=== PATIENT | female | born 1960 | race African-American/Black ===

== ENCOUNTER 2021-07-03 14:16 | Inpatient (IN) | payer OTHER, SELFPAY ==
[2021-07-03] VITALS (12 sets, daily range): BP systolic 91–145; BP diastolic 55–120; PULSE 89–111; RESP 22–35; TEMP 36.6–37.1; O2SAT 97–100; BMI 37.8; BMI 37.9
--- NOTE | ~2021-07-03 | XR_ITS ---
XR chest 1V portable 07/03/2021 15:26 Indication: Dyspnea, shortness of breath. Covid positive. Procedure: AP portable chest Comparison: No prior studies for comparison. Findings: Extensive bilateral airspace disease. Cardiomegaly. No significant effusion or pneumothorax . There are postsurgical changes in the right axilla and upper thorax. Impression: 1: Diffuse bilateral airspace disease which may represent pneumonia,, edema or ARDS. Reviewed, dictated and finalized at location A. HARGE SPECIALIST Impression: 1: Diffuse bilateral airspace disease which may represent pneumonia,, edema or ARDS.
--- NOTE | ~2021-07-03 | CT_ITS ---
EXAMINATION: CTA chest DATE: 07/03/2021 16:03 PARTICLEBOARD FACTORY WORKER INDICATION: Shortness of breath, hypoxia. Covid. TECHNIQUE: Computed tomographic angiography (CTA) of the chest was performed with 100 mL Omnipaque-35 0 intravenous contrast. The dose-length product was 928.91 mGy-cm. Maximum intensity projection 3D-re constructions of the aorta and other arteries were constructed by the technologist on a separate work station. Automated exposure control and iterative reconstruction technique were employed. COMPARISON: Chest dated 07/03/2021. FINDINGS: There is atherosclerosis of the aorta and coronary arteries. Left ventricular hypertrophy. Mild cardiomegaly. No significant pleural or pericardial effusion. Small hiatal hernia. Status post c holecystectomy. No thoracic lymphadenopathy. Extensive patchy bilateral airspace disease, compatible with pneumonia. No endobronchial lesions. There is dependent atelectasis. No evidence for pulmonary embolism. Mild thoracic spondylosis. Mild levocurvature of the thoracic spi ne. No evidence for aortic aneurysm or dissection. IMPRESSION: 1. Extensive patchy bilateral groundglass opacification in both lungs, compatible with pneumonia. 2: No evidence for pulmonary embolism. Reviewed, dictated and finalized at location A. ICLEBOARD FACTORY WORKER IMPRESSION: 1. Extensive patchy bilateral groundglass opacification in both lungs, compatib le with pneumonia. 2: No evidence for pulmonary embolism.
--- NOTE | 2021-07-03 14:20 | ECG_ITS ---
Measurements Intervals [place] Rate: 85 P: 85 NM: 238 QRS: -30 QRSD: 82 T: 136 QT: 399 QTc: 476 Interpretive Statements SINUS RHYTHM WITH FIRST DEGREE AV BLOCK POOR R WAVE PROGRESSION, ANTERIOR LEADS BORDERLINE ST-T WAVE ABNORMALITY- ANTEROLAT/HIGH LAT LEADS BASELINE ARTIFACT- I, II, AVR, AVL, AVF, V1-V3 ABNORMAL ECG Electronically Signed On 07-03-2021 14:37:09 RESOURCE RECOVERY ENGINEER by Julius Wick D.O.
[2021-07-03] MEDS: ALBUTEROL SULFATE NEB 2.5 MG/0.5 ML INH 5 MG INHALATION (14:46)
[2021-07-03] MEDS: IPRATROPIUM BR 0.02% INH SOLN 0.5 MG/2.5 ML VIAL INHALATION (14:46)
[2021-07-03 14:57] LABS: Basophils Percent Auto 0.2 % (0.2-1.2); Eosinophils Percent Auto 0.2 % (0-4.4); Hematocrit 41.3 % (37.0-47.0); Hemoglobin 13.8 g/dL (12.0-15.0); Immature Granulocyte Absolute 0.04 K/mm3 (0.00-0.031); Immature Granulocyte Percent A 0.9 % (0-0.5); Immature Platelet Fraction Pct 5.2 % (0.9-11.2); Lymphocytes Absolute Auto 2.23 K/mm3 (0.9-3.2); Lymphocytes Percent Auto 50.6 % (18.3-44.2); Mean Corpuscular HGB Conc 33.4 g/dl (32-36); Mean Corpuscular Volume 95.8 fl (80-100); Mean Platelet Volume 10.4 fl (7.4-10.4); Monocytes Absolute Auto 0.5 K/mm3 (0.1-0.6); Monocytes Percent Auto 10.4 % (2.6-8.5); Neutrophils Absolute Auto 1.7 K/mm3 (1.3-6.7); Neutrophils Percent Auto 37.7 % (45.5-73.1); Platelet Count Result 136 k/mm3 (150-375); Red Blood Count 4.31 M/mm3 (4.2-5.4); Red Cell Distribution Width 13.2 % (11.5-14.5); White Blood Count 4.4 K/mm3 (4.5-10.0)
[2021-07-03 15:05] LABS: Alanine Aminotransferase 31 U/L (4-35); Albumin Level 3.5 g/dL (3.5-5.1); Alkaline Phosphatase 218 U/L (38-126); Anion Gap 10 mmol/L (8-16); Aspartate Amino Transferase 78 U/L (14-36); Bilirubin,Total 0.8 mg/dL (0.2-1.3); Blood Urea Nitrogen 29 mg/dL (7-17); Calcium 6.6 mg/dL (8.4-10.2); Carbon Dioxide 25 mmol/L (22-30); Chloride 88 mmol/L (98-107); Estimated Glomerular Filt Rate > 60; Glucose 162 mg/dL (65-110); Potassium 4.3 mmol/L (3.4-5.0); Sodium 123 mmol/L (137-145)
[2021-07-03] MEDS: methylPREDNISolone SOD SUCC 125 MG VIAL IV PUSH (15:05)
[2021-07-03 15:07] LABS: Alveolar/Arterial O2 Gradient 94.1 mmHg; Base Excess ABG -0.9 mEq/l (+/-2.0); Fractional Inspired Oxygen 28 %; HCO3 ABG 22.6 mEq/l (22.0-26.0); Oxygen Saturation ABG 93.6 % (95.0-100.0); Oxyhemoglobin 90.9 % THb (90.0-100.0); PCO2 ABG 34.4 mmHg (35.0-45.0); PO2 FiO2 Ratio Arterial Blood 2.32 %; Total Hemoglobin 14.1 g/dL (12.0-18.0); pH ABG 7.436 (7.350-7.450)
[2021-07-03 15:09] LABS: Device NASAL CANNULA; Modified Allen's Test Pass; Site Drawn RIGHT RADIAL
[2021-07-03 15:14] LABS: NT Pro B Type Natriuretic Pept 2110 pg/mL (5-100)
--- NOTE | 2021-07-03 16:15 | ED.SOB ---
HPI - SOB/Dyspnea General Chief Complaint: Shortness of Breath/Dyspnea <Adarsh Taveras MD - Last Filed: 07/03/21 19:00> Stated Complaint: RESP DISTRESS/COVID + <Adarsh Taveras MD - Last Filed: 07/03/21 19:00> Time Seen by Provider: 07/03/21 14:21 <Adarsh Taveras MD - Last Filed: 07/03/21 19:00> Source: patient <Adarsh Taveras MD - Last Filed: 07/03/21 19:00> History of Present Illness HPI Narrative: Patient referred from the nursing facility for respiratory distress. Patient ports she has felt short of breath for the past couple days and is getting progressively worse. She reports cough and diffuse body aches she denies focal areas of pain such as chest pain and or abdominal pain denies any nausea vomiting or diarrhea. Reports she was diagnosed with Covid approximately 5 days ago at the nursing facility. <Adarsh Taveras MD - Last Filed: 07/03/21 19:00> Related Data Home Medications: Home Medications Medication Instructions Recorded Confirmed acetaminophen-codeine 12.5 ml PO BID 07/03/21 07/03/21 albuterol mcg INHALATION PRN 07/03/21 ascorbic acid (vitamin C) 250 mg PO DAILY 07/03/21 07/03/21 aspirin 81 mg PO DAILY 07/03/21 07/03/21 atorvastatin 40 mg PO DAILY 07/03/21 07/03/21 calcitriol 0.25 mcg PO 3XW 07/03/21 07/03/21 calcium carbonate-vitamin D3 cap PO BID 07/03/21 cephalexin 500 mg PO Q8H 07/03/21 07/03/21 famotidine 20 mg PO BID 07/03/21 07/03/21 ferrous sulfate 325 mg PO BID 07/03/21 07/03/21 gabapentin 300 mg PO TID 07/03/21 07/03/21 insulin glargine [Lantus U-100 SUBCUT 07/03/21 Insulin] insulin lispro 07/03/21 metoprolol tartrate 12.5 07/03/21 midodrine 10 mg PO TID 07/03/21 07/03/21 prednisone 5 mg PO DAILY 07/03/21 07/03/21 tacrolimus 1.5 mg 07/03/21 warfarin 3 mg PO DAILY 07/03/21 07/03/21 <Adarsh Taveras MD - Last Filed: 07/03/21 19:00> Allergies/Adverse Reactions: Allergies Allergy/AdvReac Type Severity Reaction Status Date / Time No Known Allergies Allergy Verified 07/03/21 14:41 <Adarsh Taveras MD - Last Filed: 07/03/21 19:00> Review of Systems Review of Systems: CONSTITUTIONAL: Denies fever, chills, or sweats. EYES: Denies visual changes, redness, or discharge. ENT: Denies rhinorrhea, congestion, sore throat, or otalgia. CARDIOVASCULAR: Denies chest pain, palpitations, or edema. RESPIRATORY: Reports cough and shortness of breath GASTROINTESTINAL: Denies abdominal pain, nausea, vomiting, or diarrhea. GENITOURINARY: Denies dysuria or hematuria. SKIN: Denies rash or itching. MUSCULOSKELETAL: Denies back pain, joint pain, or myalgia. NEUROLOGIC: Denies headache, numbness, dizziness, or weakness. PSYCHIATRIC: Denies anxiety or depression. <Adarsh Taveras MD - Last Filed: 07/03/21 19:00> All systems reviewed & are unremarkable except as noted in HPI and below <Adarsh Taveras MD - Last Filed: 07/03/21 19:00> PMFSH Past Medical History Medical History: Medical History (Updated 07/03/21 @ 18:56 by Adarsh Taveras MD) 2019 novel coronavirus-infected pneumonia (NCIP) <Adarsh Taveras MD - Last Filed: 07/03/21 19:00> Surgical History Surgical History: Surgical History (Updated 07/03/21 @ 18:57 by Adarsh Taveras MD) S/P AKA (above knee amputation) bilateral <Adarsh Taveras MD - Last Filed: 07/03/21 19:00> Social History Social History: Social History (Updated 07/03/21 @ 18:59 by Adarsh Taveras MD) Substance use: never <Adarsh Taveras MD - Last Filed: 07/03/21 19:00> Exam Narrative: GENERAL: Well-appearing, well-nourished, and in no acute distress. HEAD: Normocephalic, atraumatic. EYES: PERRLA and EOMI. ENT: Nares clear, no rhinorrhea or epistaxis. Mucous membranes moist. NECK: Supple. No masses. No JVD CHEST: Diffuse wheezing in all lung [place] HEART: Regular rate and rhythm. No murmur heard. Normal peripheral pulses. ABDOMEN: Multiple surgical scars no focal areas of
--- NOTE | 2021-07-03 16:51 | PC.NURSE ---
upon entry to exam room, patient's WOB increase with deep, more accessory muscle use. MD notified and at bedside. new orders received. pt remains alert and orientated however, appears lethargic and slow to answer questions.
--- NOTE | 2021-07-03 16:52 | PC.NURSE ---
Pt having increased work of breathing and seems more lethargic. Pt still wheezing at this time. MD made aware and at bedside reassessing pt. orders for repeat ABG and hour long breathing treatment.
[2021-07-03 17:03] LABS: Lactic Acid Reflex 3.1 mmol/L (0.7-2.1)
[2021-07-03 17:11] LABS: INR 1.8; Prothrombin Time 20.2 Seconds (11.1-14.7)
[2021-07-03 17:12] LABS: Partial Thromboplastin Time 46.1 SECONDS (22.3-36.8)
[2021-07-03] MEDS: IPRATROPIUM BR 0.02% INH SOLN 0.5 MG/2.5 ML VIAL 1.5 MG INHALATION (17:58)
[2021-07-03] MEDS: ALBUTEROL SULFATE NEB 2.5 MG/0.5 ML INH 15 MG INHALATION (17:58)
[2021-07-03 18:48] LABS: Base Excess ABG -1.8 mEq/l (+/-2.0); HCO3 ABG 22.3 mEq/l (22.0-26.0); PO2 ABG 66.9 mmHg (80.0-100.0)
[2021-07-03 18:49] LABS: Alveolar/Arterial O2 Gradient 90.3 mmHg; Oxygen Content ABG 18.7 %vol (16.0-22.0); Oxygen Saturation ABG 93.6 % (95.0-100.0); Oxyhemoglobin 91.3 % THb (90.0-100.0); Total Hemoglobin 14.6 g/dL (12.0-18.0)
[2021-07-03 18:50] LABS: Device NASAL CANNULA; PO2 FiO2 Ratio Arterial Blood 2.39 %; Site Drawn RIGHT BRACHIAL
[2021-07-03] MEDS: REMDESIVIR 200 MG/NS 250 ML 200 MG/250 ML BAG 250 MG IVPB (18:50)
--- NOTE | 2021-07-03 18:51 | PC.NURSE ---
spoke with Dr Taveras. OK to collect urine when patient can go
--- NOTE | 2021-07-03 19:16 | PC.NURSE ---
[facility] notified by RN that [facility] faxed.
--- NOTE | 2021-07-03 19:40 | PM.IMHP ---
H&P: HPI History of Present Illness Date/Time: 07/03/21 19:40 Chief Complaint: Shortness of breath Narrative: This is a 60-year-old female with past medical history significant for type 2 diabetes mellitus, bilateral above the knee amputations, kidney transplant. Patient resides at a shelter facility staff was concerned for patient's decreased oxygen saturation and a test for COVID came back positive, it was noted that the patient was getting progressively short of breath. Most of the history has been obtained from reviewing medical records as patient is giving much history. [facility] but was brought in today by ambulance. Preliminary workup was significant for CTA was not significant for pulmonary embolism but showed extensive ground-glass opacity, chest x-ray was significant for bilateral airway disease diffuse infiltrates. An ABG showed a pH of 7.4 a pCO2 36 and a PO2 of 66. Decision has been made to admit the patient for further management evaluation and treatment. Review of Systems Review of Systems: ROS unobtainable: Yes unobtainable due to medical condition (Drowsy) and unobtainable due to mental status PMFSH Past Medical History Medical History (Updated 07/03/21 @ 18:56 by Adarsh Taveras MD) 2019 novel coronavirus-infected pneumonia (NCIP) Surgical History Surgical History (Updated 07/04/21 @ 02:33 by Korin Cortez MD) S/P AKA (above knee amputation) bilateral Family History Family History (Updated 07/03/21 @ 23:34 by Chasity Rios RN) Sibling Breast cancer Social History Social History (Updated 07/03/21 @ 18:59 by Adarsh Taveras MD) Alcohol intake: unknown Substance use: unknown Spiritual care concerns: No Meds Home Medications and Allergies Home Medications Medication Instructions Recorded Confirmed Type acetaminophen-codeine 12.5 ml PO Q12H 07/03/21 07/03/21 History albuterol sulfate 2 puff INHALATION Q6H PRN 07/03/21 07/03/21 History ascorbic acid (vitamin C) 250 mg PO DAILY 07/03/21 07/03/21 History aspirin 81 mg PO DAILY 07/03/21 07/03/21 History atorvastatin 40 mg PO DAILY 07/03/21 07/03/21 History calcitriol 0.25 mcg PO 3XW 07/03/21 07/03/21 History calcium carbonate-vitamin D3 1 tablet PO BID 07/03/21 07/03/21 History dextran 70-hypromellose 2 drp EACH EYE BID 07/03/21 07/03/21 History [Artificial Tears (PF)] [id number] A-D-aloe 1 applic TOPICAL TID 07/03/21 07/03/21 History [Zinc Oxide Diaper Cream] ergocalciferol (vitamin D2) 1,250 mcg PO WEEKLY 07/03/21 07/03/21 History [Vitamin D2] famotidine 20 mg PO BID 07/03/21 07/03/21 History ferrous sulfate 325 mg PO BID 07/03/21 07/03/21 History gabapentin 300 mg PO TID 07/03/21 07/03/21 History insulin glargine [Lantus U-100 6 unit SUBCUT HS 07/03/21 07/03/21 History Insulin] insulin lispro See Rx Instructions .ROUTE .COMPLEX 07/03/21 07/03/21 History magnesium oxide 400 mg PO DAILY 07/03/21 07/03/21 History metoprolol tartrate 12.5 mg PO Q12H 07/03/21 07/03/21 History midodrine 10 mg PO TID 07/03/21 07/03/21 History multivitamin [Daily Multivitamin] 1 tablet PO DAILY 07/03/21 07/03/21 History prednisone 5 mg PO DAILY 07/03/21 07/03/21 History tacrolimus 1.5 mg PO Q12H 07/03/21 07/03/21 History warfarin 3 mg PO QPM 07/03/21 07/03/21 History Allergies Allergy/AdvReac Type Severity Reaction Status Date / Time No Known Allergies Allergy Verified 07/03/21 14:41 Vital Signs Vital Signs - 24 hr 07/03/21 14:21 07/03/21 14:28 07/03/21 15:06 Temperature 97.8 F Pulse Rate 94 96 Respiratory Rate 24 H Blood Pressure 145/120 H Pulse Oximetry 98 07/03/21 15:09 07/03/21 16:54 07/03/21 17:53 Temperature Pulse Rate 101 H 94 Respiratory Rate 22 H 30 H Blood Pressure Pulse Oximetry 98 97 07/03/21 18:52 07/03/21 19:23 Temperature Pulse Rate 89 111 H Respiratory Rate 27 H 35 H Blood Pressure 101/79 Pulse Oximetry 100 Exa
[2021-07-03 19:52] LABS: Reflex Lactic Acid Yes or No Add Lactic
[2021-07-03] MEDS: WARFARIN (*PBKC) 3 MG TABLET PO (22:35)
[2021-07-03] MEDS: GABAPENTIN 300 MG CAPSULE PO (22:35)
[2021-07-04] VITALS (11 sets, daily range): BP systolic 100–155; BP diastolic 34–101; PULSE 52–104; RESP 18–31; TEMP 36.3–37.1; O2SAT 91–100
[2021-07-04] MEDS: INSULIN GLARGINE (*BKC) 100 UNITS/ML 6 UNITS SUB-Q (01:15)
[2021-07-04] MEDS: INSULIN ASPART (*BKC) 100 UNITS/ML 10 UNITS SUB-Q (01:15)
[2021-07-04 01:36] LABS: Glucose Point of Care 475 mg/dl (65-105)
[2021-07-04 02:16] LABS: Add Urine Microscopic? YES; Appearance Urine Cloudy (Clear); Bacteria Urine Trace /hpf; Bilirubin Urine Negative (Negative); Blood Urine 2+ (Negative); Color Urine Straw (Yellow); Glucose Urine UA 3+ mg/dL (Negative); Ketones Urine Trace mg/dL (Negative); Leukocyte Esterase Ur 3+ LEU/UL (Negative); Nitrate Urine Negative (Negative); Protein Urine Negative (Negative); Specific Grav Ur 1.008 (1.001-1.035); Urobilinogen Urine Negative mg/dL (<2.0); WBC Clumps Urine Present /HPF; WBC Urine >75 /hpf
--- NOTE | 2021-07-04 02:32 | PC.NURSE ---
Pt refused bipap and farias orders. Respiratory and this RN both stressed how much pt needed the bipap due to her work of breathing. Dr Cortez notified. Dr Cortez came to talk to the pt about importance and told me pt was agreeing to both bipap and farias. When this RN went back into room, pt was unsure of farias but allowed attempt. Unsuccessful at [address] farias[address] Before leaving the room to see if antother RN could try, RN attempted to place bipap on pt. Pt could not tolerate the pressure and refused before RN even was able to fully tighten the mask. Stressed again how important the bipap is in reducing her work of breathing and that with her labored breathing she could wear out and need intubation. Pt became tearful and is requesting transfer to [facility] where her composing machine operator is. Pt wished to talk to her mother. Alerted Dr Cortez to refusal of bipap again and to pt's desire to transfer. NNO at this time. Called pt's mother at 0100 to explain the situation, potential for intubation, and pt's desire to transfer then transferred call to pt's room.
--- NOTE | 2021-07-04 03:11 | PC.NURSE ---
This patient, Terese Salcido, was admitted to [facility]U Room 200-01. Patient/family oriented to hospital policies and general routines including ID bracelet, bed and alarms, visiting hours, pain management, procedures, bathroom and other care routines, personal items, smoking policy, room service/diet, and visiting hours. Patient encouraged to report perceived risks to care and to ask questions if they do not understand what they are told or what they should do.
[2021-07-04 04:52] LABS: INR 1.9; Prothrombin Time 21.6 Seconds (11.1-14.7)
[2021-07-04 05:02] LABS: Alanine Aminotransferase 41 U/L (4-35); Estimated CRCL calculation 57 ml/min; Estimated Glomerular Filt Rate > 60
[2021-07-04] MEDS: INSULIN ASPART (*BKC) 100 UNITS/ML 12 UNITS SUB-Q (05:38)
[2021-07-04 05:42] LABS: Glucose Point of Care 437 mg/dl (65-105)
--- NOTE | 2021-07-04 06:21 | PC.NURSE ---
Asked pt again if I could put bipap mask on. Breathing seems more labored. Pt still refuses.
--- NOTE | 2021-07-04 08:11 | PM.IMPN ---
Subjective Date/time seen: 07/04/21 08:11 Objective Data Vital Signs Vital Signs: Vital Signs - 24 hr 07/03/21 14:21 07/03/21 14:28 07/03/21 15:06 Temperature 97.8 F Pulse Rate 94 96 Respiratory Rate 24 H Blood Pressure 145/120 H Pulse Oximetry 98 07/03/21 15:09 07/03/21 16:54 07/03/21 17:53 Temperature Pulse Rate 101 H 94 Respiratory Rate 22 H 30 H Blood Pressure Pulse Oximetry 98 97 07/03/21 18:52 07/03/21 19:23 07/03/21 19:51 Temperature 97.8 F Pulse Rate 89 111 H 107 H Respiratory Rate 27 H 35 H 24 H Blood Pressure 101/79 117/90 Pulse Oximetry 100 98 07/03/21 20:08 07/03/21 20:54 07/03/21 22:00 Temperature 98.7 F Pulse Rate 103 H 96 93 Respiratory Rate 26 H Blood Pressure 91/55 L Pulse Oximetry 100 97 07/04/21 00:00 07/04/21 02:00 07/04/21 04:00 Temperature 97.9 F 97.7 F Pulse Rate 100 90 86 Respiratory Rate 31 H 27 H Blood Pressure 100/46 L 155/52 H Pulse Oximetry 100 98 07/04/21 06:00 07/04/21 07:54 Temperature 98.8 F Pulse Rate 86 52 L Respiratory Rate 20 Blood Pressure 113/34 L Pulse Oximetry 98 Intake/Output Intake/Output: Intake & Output 07/01/21 07/02/21 07/03/21 07/04/21 23:59 23:59 23:59 23:59 Intake Total 250 3000 Output Total 1100 Balance 250 1900 Meds/Results Medications: Active Medications Generic Name Dose Route Start Last Admin Trade Name Freq PRN Reason Stop Dose Admin Albuterol 2 puff 07/04/21 04:00 Albuterol Sulfate (*Sp) Inhaler INHALATION Q4HRT [facility] Artificial Tears 2 drop 07/04/21 09:00 Artificial Tears Ophth Soln 15 Ml Bottle EACH EYE 08/03/21 08:59 BID [facility] Calcium Carbonate 500 mg 07/04/21 09:00 Calcium/Vitamin D 500 Mg Tablet PO 08/03/21 08:59 BID [facility] Dexamethasone Sodium Phosphate 6 mg 07/04/21 09:00 Dexamethasone Sod Phos Inj 10 Mg/Ml 1 Ml Vial IV PUSH 07/13/21 09:01 DAILY [facility] Dextrose 12.5 gm 07/03/21 23:50 Dextrose 50% 25 Gm/50 Ml Syringe IV PUSH PRN PRN Hypoglycemia Protocol Ergocalciferol 50,000 unit 07/13/21 09:00 Ergocalciferol 50,000 Unit Capsule PO Mo@0900 [facility] Gabapentin 300 mg 07/03/21 22:00 07/03/21 22:35 Gabapentin 300 Mg Capsule PO 300 mg Q8HR [facility] Administration Glucagon 1 mg 07/03/21 23:50 Glucagon For Inj 1 Mg Vial IM PRN PRN Hypoglycemia Protocol Glucose 15 gm 07/03/21 23:50 Glucose Oral Gel 15 Gm Of Glucse In 37.5 Gm Tube PO PRN PRN Hypoglycemia Protocol Acetaminophen 1,000 mg in 100 mls @ 400 mls/hr 07/03/21 17:32 Ofirmev 1,000 Mg Ivpb IVPB 07/04/21 17:31 Q6H PRN Mild Pain (1-3) or Fever Remdesivir 100 mg in 250 mls @ 250 mls/hr 07/04/21 22:00 IVPB 07/07/21 22:59 Q24H [facility] Cefepime HCl 2 gm in 50 mls @ 100 mls/hr 07/04/21 21:00 Maxipime 2 Gm/D5w 50 Ml IVPB Q24H [facility] Azithromycin 500 mg in 250 mls @ 250 mls/hr 07/03/21 22:00 07/04/21 02:27 Zithromax IVPB Infused Q24H [facility] Infusion Dextrose 1,000 mls @ 100 mls/hr 07/03/21 23:50 Dextrose 5% 1,000 Ml IVPB PRN PRN Hypoglycemia Protocol Vancomycin HCl 1,500 mg in 500 mls @ 333.333 mls/hr 07/04/21 22:00 Vancomycin 1,500 Mg/D5w 500 Ml IVPB Q24H [facility] Insulin Aspart 6 units 07/04/21 08:00 Insulin Aspart (*Bkc) 100 Units/Ml SUB-Q ACINSULIN [facility] Insulin Glargine 6 units 07/04/21 21:00 Insulin Glargine (*Bkc) 100 Units/Ml SUB-Q HS [facility] Magnesium Oxide 400 mg 07/04/21 09:00 Magnesium Oxide 400 Mg Tablet PO DAILY [facility] Metoprolol Tartrate 12.5 mg 07/03/21 22:55 07/03/21 23:51 Metoprolol Tartrate 12.5 Mg Tablet PO Not Given Q12HR [facility] Midodrine 10 mg 07/04/21 09:00 Midodrine Hcl 10 Mg Tablet PO TID [facility] Miscellaneous Information 0 each 07/03/21 00:01 Tacrolimus Is Nonformulary - Can Patient Take From Home? XX 08/02/21 00:00 CLARIFY [facility] Miscellaneous I
[2021-07-04] MEDS: ALBUTEROL SULFATE (*SP) INHALER 2 PUFF INHALATION ×3 (08:46→17:49)
[2021-07-04] MEDS: GABAPENTIN 300 MG CAPSULE PO ×2 (09:22→13:27)
[2021-07-04] MEDS: ARTIFICIAL TEARS OPHTH SOLN 15 ML BOTTLE 2 DROP EACH EYE ×2 (09:23→17:28)
[2021-07-04] MEDS: MAGNESIUM OXIDE 400 MG TABLET PO (09:25)
[2021-07-04] MEDS: MULTIVITAMINS THERAPEUTIC TAB (*BKC) 1 TABLET PO (09:26)
[2021-07-04] MEDS: MIDODRINE HCL 10 MG TABLET PO ×3 (09:26→17:29)
[2021-07-04] MEDS: METOPROLOL TARTRATE 12.5 MG TABLET PO (09:26)
[2021-07-04] MEDS: PANTOPRAZOLE SODIUM IV 40 MG VIAL IV PUSH (09:27)
[2021-07-04] MEDS: INSULIN ASPART (*BKC) 100 UNITS/ML 6 UNITS SUB-Q ×3 (09:32→17:40)
[2021-07-04 09:38] LABS: Glucose Point of Care 322 mg/dl (65-105)
[2021-07-04 12:08] LABS: Lactic Acid Reflex 1.5 mmol/L (0.7-2.1)
[2021-07-04 12:59] LABS: Basophils Percent Auto 0.2 % (0.2-1.2); Hematocrit 37.6 % (37.0-47.0); Hemoglobin 13.1 g/dL (12.0-15.0); Immature Granulocyte Absolute 0.07 K/mm3 (0.00-0.031); Immature Granulocyte Percent A 1.2 % (0-0.5); Immature Platelet Fraction Pct 4.9 % (0.9-11.2); Lymphocytes Absolute Auto 0.71 K/mm3 (0.9-3.2); Lymphocytes Percent Auto 12.6 % (18.3-44.2); Mean Corpuscular HGB Conc 34.8 g/dl (32-36); Mean Corpuscular Hemoglobin 32.4 pg (26-34); Mean Corpuscular Volume 93.1 fl (80-100); Mean Platelet Volume 9.9 fl (7.4-10.4); Monocytes Absolute Auto 0.4 K/mm3 (0.1-0.6); Monocytes Percent Auto 6.9 % (2.6-8.5); Neutrophils Absolute Auto 4.5 K/mm3 (1.3-6.7); Neutrophils Percent Auto 79.1 % (45.5-73.1); Platelet Count Result 155 k/mm3 (150-375); Red Blood Count 4.04 M/mm3 (4.2-5.4); White Blood Count 5.7 K/mm3 (4.5-10.0)
[2021-07-04 13:08] LABS: Alanine Aminotransferase 45 U/L (4-35); Aspartate Amino Transferase 129 U/L (14-36); Estimated CRCL calculation 63 ml/min; Estimated Glomerular Filt Rate > 60
[2021-07-04 13:12] LABS: Glucose Point of Care 331 mg/dl (65-105)
[2021-07-04] MEDS: BARICITINIB 2 MG TABLET 4 MG PO (16:09)
[2021-07-04] MEDS: BENZONATATE 100 MG CAPSULE 200 MG PO (16:09)
[2021-07-04] MEDS: WARFARIN (*PBKC) 3 MG TABLET PO (17:31)
--- NOTE | 2021-07-04 17:49 | PCRCNOTE ---
Window of time for administration has passed. See next scheduled administration.
[2021-07-04 18:18] LABS: Glucose Point of Care 331 mg/dl (65-105)
[2021-07-04 19:57] LABS: SARS-CoV-2 RNA PCR Positive
--- NOTE | 2021-07-12 20:20 | PM.TDS ---
Transfer Discharge Sum: Prov Provider Date of admission: 07/03/21 18:09 Primary care physician: Bradley Storey MD Admitting clinician: Cally Rucker MD DS: Admitting Diagnosis Discharge Date 07/04/21 Admitting Diagnosis Acute Hypoxic Respiratory Failure DS: Discharge Diagnosis Discharge Diagnosis (1) Acute respiratory failure with hypoxia: Code(s): J96.01 - Acute respiratory failure with hypoxia Status: Acute Assessment and Plan: Patient admitted from care home positive for COVID 19 with increasing oxygen requirement. Patient refused BiPAP and was maintained on oxygen until transfer to [facility]. Patient was given remdesivir, dexamethasone and baricitinib for COVID 19 pneumonia. At initial presentation she was given cefepime, vancomycin and azithromycin. Her case was discussed with the hospitalist from [facility], Dr. Yeh and the patient was transferred to [facility] as was her request and because [facility] cannot monitor her her daily tacrolimus level as that test is a sendout. Plus the pharmacy does not carry the drug tacrolimus to administer to the patient to prevent rejection. (2) 2019 novel coronavirus-infected pneumonia (NCIP): Code(s): U07.1 - COVID-19; J12.82 - Pneumonia due to coronavirus disease 2019 Status: Acute Assessment and Plan: 07/03/21 COVID 19 test positive with the patient requirng nasal cannula oxygen and CT chest noting ground glass opacities c/w COVID 19 pneumonia. (3) Status post kidney transplant: Code(s): Z94.0 - Kidney transplant status Status: Acute Assessment and Plan: Patient on prednisone and tacrolimus 1.5 mg q12. The lab at [place] does not have the capability to properly monitor the tacrolimus level daily nor does the pharmacy have the medication on formulary to administer to the patient. For these two reasons, it was decided to get the best care, it would be best for the patient to transfer to [facility], where she recieved her kidney transplant in 2005 and could be monitored by the transplant java swing developer. (4) S/P AKA (above knee amputation) bilateral: Code(s): Z89.611 - Acquired absence of right leg above knee; Z89.612 - Acquired absence of left leg above knee Status: Acute Assessment and Plan: Patient has bilateral AKA. Transfer Discharge Sum: Med Medications Active and Home Medications: Home Medications acetaminophen-codeine 12.5 ml PO Q12H 07/03/21 [History Confirmed 07/03/21] albuterol sulfate 2 puff INHALATION Q6H PRN 07/03/21 [History Confirmed 07/03/21] ascorbic acid (vitamin C) 250 mg PO DAILY 07/03/21 [History Confirmed 07/03/21] aspirin 81 mg PO DAILY 07/03/21 [History Confirmed 07/03/21] atorvastatin 40 mg PO DAILY 07/03/21 [History Confirmed 07/03/21] calcitriol 0.25 mcg PO 3XW 07/03/21 [History Confirmed 07/03/21] calcium carbonate-vitamin D3 1 tablet PO BID 07/03/21 [History Confirmed 07/03/21] dextran 70-hypromellose [Artificial Tears (PF)] 2 drp EACH EYE BID 07/03/21 [History Confirmed 07/03/21] [id number] A-D-aloe [Zinc Oxide Diaper Cream] 1 applic TOPICAL TID 07/03/21 [History Confirmed 07/03/21] ergocalciferol (vitamin D2) [Vitamin D2] 1,250 mcg PO WEEKLY 07/03/21 [History Confirmed 07/03/21] famotidine 20 mg PO BID 07/03/21 [History Confirmed 07/03/21] ferrous sulfate 325 mg PO BID 07/03/21 [History Confirmed 07/03/21] gabapentin 300 mg PO TID 07/03/21 [History Confirmed 07/03/21] insulin glargine [Lantus U-100 Insulin] 6 unit SUBCUT HS 07/03/21 [History Confirmed 07/03/21] insulin lispro See Rx Instructions .ROUTE .COMPLEX 07/03/21 [History Confirmed 07/03/21] magnesium oxide 400 mg PO DAILY 07/03/21 [History Confirmed 07/03/21] metoprolol tartrate 12.5 mg PO Q12H 07/03/21 [History Confirmed 07/03/21] midodrine 10 mg PO TID 07/03/21 [History Confirmed 07/03/21] multivitamin [Daily Multivitamin] 1 tablet PO DAILY 07/03/21 [History Confirmed 07/03/21] prednisone 5 mg PO DAILY 07/03/21 [Hist
== END 2021-07-04 18:18 | disposition short-term general hospital (02) | DRG 137 ==
LOC: ANHED 16:24 → ANHIMU 19:06
PROVIDERS: Emergency Medicine; Admitting Provider Family Medicine; Emergency Provider Emergency Medicine; PCP Internal Medicine; Visit Provider Family Medicine
DX: U07.1 COVID-19 (principal); J12.82 Pneumonia due to coronavirus disease 2019; J96.01 Acute respiratory failure with hypoxia; Z89.611 Acquired absence of right leg above knee; Z89.612 Acquired absence of left leg above knee; Z94.0 Kidney transplant status; E66.9 Obesity, unspecified; Z68.37 Body mass index [BMI] 37.0-37.9, adult
CPT/HCPCS: 36415; 36600; 71045; 71275; 80053; 81001; 82565; 82805; 82948; 83605; 83880; 84450; 84460; 85025; 85055; 85610; 85730; 87040; 87077; 87086; 87088; 87186; 93005; 94640; 96374; 99285; A9270; C9113; C9803; G0379; J0456; J0692; J1100; J1815; J2930; J3370; Q9967; U0003; U0005

== ENCOUNTER 2021-08-01 07:41 | Inpatient (IN) | payer OTHER, SELFPAY ==
[2021-08-01] VITALS (15 sets, daily range): BP systolic 92–125; BP diastolic 50–87; PULSE 66–121; RESP 16–29; TEMP 36.4–37.3; O2SAT 85–99
--- NOTE | ~2021-08-01 | CT_ITS ---
EXAMINATION: CT diagnostic chest wo con DATE: 08/01/2021 12:39 INDICATION: Shortness of breath TECHNIQUE: Computed tomography (CT) of the chest was performed without intravenous contrast. Automate d exposure control and iterative reconstruction technique were employed. Exam dose: 735.39 mGy-cm to imlly exam DLP. COMPARISON: 08/01/2021 portable AP chest 07/03/2021 CTA chest FINDINGS: There are extensive patchy consolidating infiltrates scattered throughout both lungs, incre ased in severity since 07/03/2021. There is cardiomegaly. There is no pleural effusion. No pneumothorax. No thoracic aortic aneurysm. No pericardial effusion. Small sliding hiatal hernia. IMPRESSION: Increased extensive patchy bilateral consolidating infiltrates without pleural effusions , likely due to Covid pneumonia Reviewed, dictated and finalized at [facility] Reviewed, dictated and finalized at [facility]. ERCIAL BANKER IMPRESSION: Increased extensive patchy bilateral consolidating infiltrates wit hout pleural effusions, likely due to Covid pneumonia
--- NOTE | ~2021-08-01 | XR_ITS ---
XR chest 1V portable DATE: 08/01/2021 08:31 INDICATION: Shortness of breath TECHNIQUE: Portable upright AP chest on 08/01/2021 at 0827 hours COMPARISON: 07/03/2021 portable AP chest 07/03/2021 CTA chest FINDINGS: There are patchy bilateral pulmonary consolidation is again noted, increased since 07/03/20 21. Cardiomegaly. No pleural effusion or pneumothorax is evident. Surgical clips overlie the axillary areas and the upper mediastinum. Diffuse osteopenia. IMPRESSION: Persistent prominent bilateral patchy consolidating infiltrates, increased since 06/27 Cardiomegaly Reviewed, dictated and finalized at [facility]. DEVELOPMENT DIRECTOR IMPRESSION: Persistent prominent bilateral patchy consolidating infiltrates, in creased since 06/2701/25/2021 Cardiomegaly
--- NOTE | 2021-08-01 07:42 | ECG_ITS ---
Measurements Intervals [place] Rate: 103 P: DE: 0 QRS: -27 QRSD: 82 T: 151 QT: 330 QTc: 434 Interpretive Statements ATRIAL FIBRILLATION WITH RAPID VENTRICULAR RESPONSE VENTRICULAR PREMATURE COMPLEX POOR R WAVE PROGRESSION, ANTERIOR LEADS ST-T WAVE ABNORMALITY IN HIGH LATERAL LEADS- CONSIDER ISCHEMIA BASELINE ARTIFACT- II, III, AVL, AVF, V2-V6' ABNORMAL ECG Electronically Signed On 08-01-2021 7:57:34 CLINICAL STAFF EDUCATOR by Julius Wikc D.O.
[2021-08-01 08:35] LABS: Basophils Percent Auto 0.3 % (0.2-1.2); Eosinophils Absolute Auto 0.4 K/mm3 (0-0.3); Hematocrit 30.2 % (37.0-47.0); Hemoglobin 9.6 g/dL (12.0-15.0); Immature Granulocyte Absolute 0.07 K/mm3 (0.00-0.031); Immature Granulocyte Percent A 0.7 % (0-0.5); Lymphocytes Absolute Auto 1.71 K/mm3 (0.9-3.2); Lymphocytes Percent Auto 17.9 % (18.3-44.2); Mean Corpuscular HGB Conc 31.8 g/dl (32-36); Mean Corpuscular Hemoglobin 32.2 pg (26-34); Mean Corpuscular Volume 101.3 fl (80-100); Mean Platelet Volume 9.3 fl (7.4-10.4); Monocytes Absolute Auto 1.6 K/mm3 (0.1-0.6); Monocytes Percent Auto 16.5 % (2.6-8.5); Neutrophils Absolute Auto 5.8 K/mm3 (1.3-6.7); Neutrophils Percent Auto 60.6 % (45.5-73.1); Platelet Count Result 432 k/mm3 (150-375); Red Blood Count 2.98 M/mm3 (4.2-5.4); Red Cell Distribution Width 19.5 % (11.5-14.5); White Blood Count 9.6 K/mm3 (4.5-10.0)
--- NOTE | 2021-08-01 08:44 | ED.SOB ---
HPI - SOB/Dyspnea General Chief Complaint: Shortness of Breath/Dyspnea Stated Complaint: sob Source: patient, EMS and RN notes reviewed Mode of arrival: EMS Limitations: no limitations History of Present Illness HPI Narrative: Patient is 60 years old -[place] female came from halfway by ambulance because of shortness of breath which started 15 minutes before calling the ambulance After talking to halfway staff, I was informed that patient had very good morning, morning, with oxygen saturation at that time 98%, within 15 minutes the ambulance was called by the patient to come to take her to the emergency room because of shortness of breath. Patient's nurse told me that patient get intermittent shortness of breath without any specific diagnosis, finished a course of antibiotic for recent pneumonia, had Covid infection June 2021. Her oxygen saturation at the time when she called the ambulance was 98%. Related Data Home Medications Medication Instructions Recorded Confirmed acetaminophen-codeine 12.5 ml PO Q12H 07/03/21 07/03/21 albuterol sulfate 2 puff INHALATION Q6H PRN 07/03/21 07/03/21 ascorbic acid (vitamin C) 250 mg PO DAILY 07/03/21 07/03/21 aspirin 81 mg PO DAILY 07/03/21 07/03/21 atorvastatin 40 mg PO DAILY 07/03/21 07/03/21 calcitriol 0.25 mcg PO 3XW 07/03/21 07/03/21 calcium carbonate-vitamin D3 1 tablet PO BID 07/03/21 07/03/21 dextran 70-hypromellose 2 drp EACH EYE BID 07/03/21 07/03/21 [Artificial Tears (PF)] [id number]-EpFh-xdb A-D-aloe 1 applic TOPICAL TID 07/03/21 07/03/21 [Zinc Oxide Diaper Cream] ergocalciferol (vitamin D2) 1,250 mcg PO WEEKLY 07/03/21 07/03/21 [Vitamin D2] famotidine 20 mg PO BID 07/03/21 07/03/21 ferrous sulfate 325 mg PO BID 07/03/21 07/03/21 gabapentin 300 mg PO TID 07/03/21 07/03/21 insulin glargine [Lantus U-100 6 unit SUBCUT HS 07/03/21 07/03/21 Insulin] insulin lispro See Rx Instructions .ROUTE .COMPLEX 07/03/21 07/03/21 magnesium oxide 400 mg PO DAILY 07/03/21 07/03/21 metoprolol tartrate 12.5 mg PO Q12H 07/03/21 07/03/21 midodrine 10 mg PO TID 07/03/21 07/03/21 multivitamin [Daily Multivitamin] 1 tablet PO DAILY 07/03/21 07/03/21 prednisone 5 mg PO DAILY 07/03/21 07/03/21 tacrolimus 1.5 mg PO Q12H 07/03/21 07/03/21 warfarin 3 mg PO QPM 07/03/21 07/03/21 Allergies Allergy/AdvReac Type Severity Reaction Status Date / Time No Known Allergies Allergy Verified 07/03/21 14:41 Review of Systems Review of Systems: CONSTITUTIONAL: Denies fever, chills, or sweats. EYES: Denies visual changes, redness, or discharge. ENT: Denies rhinorrhea, congestion, sore throat, or otalgia. CARDIOVASCULAR: Denies chest pain, palpitations, or edema. RESPIRATORY: Denies cough or dyspnea. GASTROINTESTINAL: Denies abdominal pain, nausea, vomiting, or diarrhea. GENITOURINARY: Denies dysuria or hematuria. SKIN: Denies rash or itching. MUSCULOSKELETAL: Denies back pain, joint pain, or myalgia. NEUROLOGIC: Denies headache, numbness, or weakness. PSYCHIATRIC: Denies anxiety or depression. [facility] [place] Past Medical History Medical History 2019 novel coronavirus-infected pneumonia (NCIP) Surgical History Surgical History S/P AKA (above knee amputation) bilateral Family History Family History Sibling Breast cancer Social History Social History Smoking status: Unknown if ever smoked Alcohol intake: unknown Substance use: unknown Spiritual care concerns: No Exam Narrative: General appearance: Well-developed, well-nourished, severely depressed, crying, denying any pain or shortness of breath at this time Skin: Normal color Head: Normocephalic, nontraumatic Eyes: Clear conjunctiva ENT: Oropharynx normal, ears normal, nose normal Neck: Supple, nontender Terrie
[2021-08-01 08:58] LABS: NT Pro B Type Natriuretic Pept 4300 pg/mL (5-100); Troponin I 0.016 ng/mL (0.000-0.034)
--- NOTE | 2021-08-01 09:01 | PC.NURSE ---
ED respiratory Lydia and EDP Humberto in room to draw ABG. Patient tearful in room. Per EDP, will reattempt to draw ABG.
[2021-08-01 09:03] LABS: Alanine Aminotransferase 20 U/L (4-35); Albumin Level 3.2 g/dL (3.5-5.1); Alkaline Phosphatase 145 U/L (38-126); Anion Gap 8 mmol/L (8-16); Aspartate Amino Transferase 50 U/L (14-36); Bilirubin,Total 1.8 mg/dL (0.2-1.3); Blood Urea Nitrogen 19 mg/dL (7-17); Carbon Dioxide 23 mmol/L (22-30); Chloride 102 mmol/L (98-107); Estimated Glomerular Filt Rate > 60; Glucose 143 mg/dL (65-110); Potassium 4.4 mmol/L (3.4-5.0); Sodium 133 mmol/L (137-145)
[2021-08-01 09:21] LABS: INR 1.9; Prothrombin Time 21.7 Seconds (11.1-14.7)
[2021-08-01 09:22] LABS: Partial Thromboplastin Time 45.9 SECONDS (22.3-36.8)
[2021-08-01 09:24] LABS: D Dimer 1.76 ug/mL (<0.48)
[2021-08-01 09:44] LABS: PCO2 ABG 32.4 mmHg (35.0-45.0); PO2 ABG 59.7 mmHg (80.0-100.0)
[2021-08-01 09:45] LABS: Alveolar/Arterial O2 Gradient 88.7 mmHg; Device NASAL CANNULA; Fractional Inspired Oxygen 28 %; Modified Allen's Test Pass; Oxygen Saturation ABG 95.2 % (95.0-100.0); Oxyhemoglobin 92.3 % THb (90.0-100.0); PO2 FiO2 Ratio Arterial Blood 2.13 %; Site Drawn RIGHT RADIAL; Total Hemoglobin 11.3 g/dL (12.0-18.0)
--- NOTE | 2021-08-01 12:29 | PC.NURSE ---
Spoke to Katlin from pharmacy regarding patient's height and antibiotic dosages. Patient unsure of her current height. Per Katlin, okay to give current antibiotic dose.
--- NOTE | 2021-08-01 13:00 | PC.NURSE ---
Will initiate antibiotics after blood cultures are drawn.
--- NOTE | 2021-08-01 15:57 | ADMGEN ---
This patient, Terese Salcido, was admitted to Medical Room 254-01. Patient oriented to hospital policies and general routines including ID bracelet, bed and alarms, visiting hours, pain management, procedures, bathroom and other care routines, personal items, smoking policy, room service/diet, and visiting hours. Information on how to activate the Rapid Response Team has been discussed. Patient are encouraged to report perceived risks to care and to ask questions if they do not understand what they are told or what they should do.
[2021-08-01] MEDS: PANTOPRAZOLE SODIUM IV 40 MG VIAL IV PUSH (17:18)
[2021-08-01] MEDS: PIPERACILLIN/TAZOBACTAM SOD 4.5 GM in SODIUM CHLORIDE 0.9% IV 100 ML 200 ML IVPB (18:53)
--- NOTE | 2021-08-01 20:02 | PM.IMHP ---
H&P: HPI History of Present Illness Date/Time: 08/01/21 20:02 Chief Complaint: Shortness of breath. Narrative: This is a 60-year-old female with past medical history significant for kidney transplant, on immunosuppressive therapy, COVID-19 pneumonia, bilateral above the knee amputations, congestive heart failure. Patient was recently admitted to [facility] and then transferred out to [facility] where his transplant team is and where she usually receives her medical care at this time patient is on a waiting list to be transferred out. Patient comes in from assisted due to shortness of breath however patient is up pulse ox was 98% according to medical records. Patient can not give much of a history but states that she has been very short of breath. Patient denies any nausea, vomiting, chills or rigors, cough, sputum production. Preliminary workup was significant for CT of the chest with diffuse infiltrates, brain atretic peptide upwards 4,000. Decision has been made to admit the patient for further evaluation management and treatment. Review of Systems Review of Systems: Patient was brought to the emergency room from assisted due to shortness of breath. Constitutional: Constitutional: Denies chills, Denies fatigue, Denies fever(s), Denies malaise and Denies night sweats Eyes: Eyes: Denies change in vision ENT: Denies dysphagia, Denies nasal congestion, Denies nasal discharge, Denies nasal obstruction and Denies odynophagia Cardiovascular: Cardiovascular: Denies irregular heart rhythm, Denies lightheadedness, Denies radiating jaw, neck or arm pain, Denies palpitations and Reports dyspnea Respiratory: Respiratory: Denies change in phlegm color, Denies cough, Denies excessive phlegm production and Reports dyspnea Gastrointestinal: Gastrointestinal: Denies dyspepsia, Denies heartburn, Denies nausea and Denies vomiting Genitourinary: Genitourinary: Denies dysuria Musculoskeletal: Comments: Bilateral AKA Integumentary/Breasts: Skin/Breast: Denies rash Neurologic: Denies focal weakness and Denies Sensory deficit (Neuro) Psychiatric: Psychiatric: Reports no additional psychiatric complaints and Reports as per HPI Endocrine: Endocrine: Denies polyphagia, Denies polydipsia, Denies polyuria and Denies palpitations Hematologic/Lymphatic: Hematologic/Lymphatic: Reports no additional hematologic/lymphatic complaints and Reports as per HPI Allergic/Immunologic: Allergic/Immunologic: Reports no additional allergic/immunologic complaints and Reports as per HPI [facility] Past Medical History Medical History 2019 novel coronavirus-infected pneumonia (NCIP) Surgical History Surgical History S/P AKA (above knee amputation) bilateral Family History Family History Sibling Breast cancer Social History Social History Smoking status: Never smoker Second hand tobacco smoke exposure: No Alcohol intake: never Substance use: never Spiritual care concerns: No Meds Home Medications and Allergies Home Medications Medication Instructions Recorded Confirmed Type acetaminophen-codeine 12.5 ml PO Q12H 07/03/21 08/01/21 History albuterol sulfate 2 puff INHALATION Q6H PRN 07/03/21 08/01/21 History ascorbic acid (vitamin C) 250 mg PO DAILY 07/03/21 08/01/21 History aspirin 81 mg PO DAILY 07/03/21 08/01/21 History atorvastatin 40 mg PO DAILY 07/03/21 08/01/21 History calcitriol 0.25 mcg PO DAILY 07/03/21 08/01/21 History calcium carbonate-vitamin D3 2 tablet PO BID 07/03/21 08/01/21 History jqwysrkqtje-PoFx-cnt A-D-aloe 1 applic TOPICAL TID 07/03/21 08/01/21 History [Zinc Oxide Diaper Cream] ergocalciferol (vitamin D2) 1,250 mcg PO WEEKLY 07/03/21 08/01/21 History [Vitamin D2] famotidine 20 mg PO BID
[2021-08-01 21:39] LABS: Glucose Point of Care 119 mg/dl (65-105)
[2021-08-01] MEDS: ACYCLOVIR 400 MG TABLET PO (23:46)
[2021-08-01] MEDS: APIXABAN 5 MG TABLET PO (23:46)
[2021-08-01] MEDS: GABAPENTIN 300 MG CAPSULE PO (23:47)
[2021-08-01] MEDS: INSULIN GLARGINE (*BKC) 100 UNITS/ML 6 UNITS SUB-Q (23:48)
[2021-08-02] VITALS (17 sets, daily range): BP systolic 120–130; BP diastolic 65–87; PULSE 79–113; RESP 13–24; TEMP 36.2–36.6; O2SAT 95–100; BMI 58.1
[2021-08-02] MEDS: METOPROLOL TARTRATE 25 MG TABLET PO ×3 (00:11→20:41)
[2021-08-02] MEDS: FUROSEMIDE INJ 40 MG/4 ML VIAL IV PUSH (00:11)
[2021-08-02] MEDS: PIPERACILLIN/TAZOBACTAM SOD 4.5 GM in SODIUM CHLORIDE 0.9% IV 100 ML 200 ML IVPB ×5 (00:11→23:55)
[2021-08-02] MEDS: ALBUTEROL SULFATE NEB 2.5 MG/0.5 ML INH INHALATION ×3 (03:29→17:46)
[2021-08-02 05:47] LABS: Basophils Absolute Auto 0.1 K/mm3 (0.0-0.1); Basophils Percent Auto 0.4 % (0.2-1.2); Eosinophils Absolute Auto 0.5 K/mm3 (0-0.3); Eosinophils Percent Auto 3.9 % (0-4.4); Immature Granulocyte Absolute 0.27 K/mm3 (0.00-0.031); Immature Granulocyte Percent A 2.3 % (0-0.5); Lymphocytes Absolute Auto 2.02 K/mm3 (0.9-3.2); Lymphocytes Percent Auto 17.5 % (18.3-44.2); Mean Corpuscular HGB Conc 32.3 g/dl (32-36); Mean Corpuscular Hemoglobin 32.1 pg (26-34); Mean Corpuscular Volume 99.4 fl (80-100); Mean Platelet Volume 9.5 fl (7.4-10.4); Monocytes Percent Auto 17.3 % (2.6-8.5); Neutrophils Absolute Auto 6.8 K/mm3 (1.3-6.7); Neutrophils Percent Auto 58.6 % (45.5-73.1); Nucleated Red Blood Cells Perc 0.3 % (0.0-0.2); Platelet Count Result 420 k/mm3 (150-375); Red Blood Count 3.12 M/mm3 (4.2-5.4); Red Cell Distribution Width 19.5 % (11.5-14.5); White Blood Count 11.6 K/mm3 (4.5-10.0)
[2021-08-02 07:48] LABS: Glucose Point of Care 137 mg/dl (65-105)
[2021-08-02] MEDS: FAMOTIDINE 20 MG TABLET PO ×2 (08:47→17:27)
[2021-08-02] MEDS: ASPIRIN 81 MG CHEWABLE TABLET PO (08:47)
[2021-08-02] MEDS: MIDODRINE HCL 10 MG TABLET PO ×3 (08:47→17:26)
[2021-08-02] MEDS: GABAPENTIN 300 MG CAPSULE PO ×3 (08:47→17:27)
[2021-08-02] MEDS: ATORVASTATIN 40 MG TABLET PO (08:48)
[2021-08-02] MEDS: predniSONE 5 MG TABLET PO (08:48)
[2021-08-02] MEDS: ACYCLOVIR 400 MG TABLET PO ×2 (08:48→17:26)
[2021-08-02] MEDS: calcitrioL 0.25 MCG CAPSULE PO (08:48)
[2021-08-02] MEDS: MULTIVITAMINS THERAPEUTIC TAB (*BKC) 1 TABLET PO (08:48)
[2021-08-02] MEDS: ASCORBIC ACID 250 MG TABLET PO (08:48)
[2021-08-02] MEDS: ZINC OXIDE 20% OINT 30 GM TUBE 1 APPLIC TOPICAL ×3 (08:49→17:28)
[2021-08-02] MEDS: ARTIFICIAL TEARS OPHTH SOLN 15 ML BOTTLE 1 DROP EACH EYE ×2 (08:50→17:27)
[2021-08-02] MEDS: ACETAMINOPHEN/CODEINE (*CRX) 300/30 MG TABLET 1 TAB PO ×2 (08:54→20:40)
--- NOTE | 2021-08-02 09:18 | PC.NURSE ---
awaiting pharmacy to send 0800 iron, 0900 magnesium, protonix, and eliquis. pharmacy notified
[2021-08-02] MEDS: MAGNESIUM OXIDE 400 MG TABLET PO (10:23)
[2021-08-02] MEDS: PANTOPRAZOLE SODIUM IV 40 MG VIAL IV PUSH (10:23)
[2021-08-02] MEDS: APIXABAN 5 MG TABLET PO ×2 (10:23→17:27)
[2021-08-02] MEDS: FERROUS SULFATE 324 MG TABLET PO ×2 (10:23→17:27)
[2021-08-02 10:27] LABS: Basophils Absolute Auto 0.1 K/mm3 (0.0-0.1); Basophils Percent Auto 0.5 % (0.2-1.2); Eosinophils Absolute Auto 0.4 K/mm3 (0-0.3); Eosinophils Percent Auto 3.4 % (0-4.4); Hematocrit 30.5 % (37.0-47.0); Hemoglobin 9.9 g/dL (12.0-15.0); Immature Granulocyte Absolute 0.21 K/mm3 (0.00-0.031); Immature Granulocyte Percent A 1.9 % (0-0.5); Lymphocytes Absolute Auto 1.86 K/mm3 (0.9-3.2); Lymphocytes Percent Auto 16.6 % (18.3-44.2); Mean Corpuscular HGB Conc 32.5 g/dl (32-36); Mean Corpuscular Hemoglobin 31.7 pg (26-34); Mean Corpuscular Volume 97.8 fl (80-100); Mean Platelet Volume 9.5 fl (7.4-10.4); Monocytes Absolute Auto 1.8 K/mm3 (0.1-0.6); Monocytes Percent Auto 16.3 % (2.6-8.5); Neutrophils Absolute Auto 6.9 K/mm3 (1.3-6.7); Neutrophils Percent Auto 61.3 % (45.5-73.1); Nucleated Red Blood Cells Perc 0.2 % (0.0-0.2); Platelet Count Result 439 k/mm3 (150-375); Red Blood Count 3.12 M/mm3 (4.2-5.4); Red Cell Distribution Width 19.4 % (11.5-14.5); White Blood Count 11.2 K/mm3 (4.5-10.0)
[2021-08-02 10:29] LABS: Alanine Aminotransferase 17 U/L (4-35); Albumin Level 2.8 g/dL (3.5-5.1); Alkaline Phosphatase 140 U/L (38-126); Anion Gap 7 mmol/L (8-16); Aspartate Amino Transferase 32 U/L (14-36); Bilirubin,Total 1.5 mg/dL (0.2-1.3); Blood Urea Nitrogen 15 mg/dL (7-17); Calcium 5.7 mg/dL (8.4-10.2); Carbon Dioxide 24 mmol/L (22-30); Chloride 100 mmol/L (98-107); Estimated Glomerular Filt Rate > 60; Glucose 176 mg/dL (65-110); Magnesium 1.1 mg/dL (1.6-2.3); Potassium 4.1 mmol/L (3.4-5.0); Sodium 131 mmol/L (137-145)
[2021-08-02 11:54] LABS: Glucose Point of Care 137 mg/dl (65-105)
--- NOTE | 2021-08-02 12:55 | PC.NURSE ---
Pt states, I'm not going to [facility]. I don't know why everybody keeps saying that. I'm going to stay right here and let you all get me well at this hospital.
--- NOTE | 2021-08-02 13:58 | PM.IMPN ---
Progress Note: A&P Assessment and Plan (1) Acute respiratory failure with hypoxia: Code(s): J96.01 - Acute respiratory failure with hypoxia Status: Acute Assessment and Plan: Continue supplemental oxygen Patient with extensive infiltrates on CT of the chest and chest x-ray Supportive care Continue to monitor 08/02/2021 interval history: patient states since he has arrived see urinating more and not a short of breath as when she arrived, will continue to diurese the patient, will continue present management, waiting for bed availability at [facility], (2) CHF (congestive heart failure): Qualifiers: Heart failure chronicity: unspecified Heart failure type: unspecified Qualified Code(s): I50.9 - Heart failure, unspecified Code(s): I50.9 - Heart failure, unspecified Status: Acute Assessment and Plan: Patient usually receives her care at [facility] No echocardiogram available at our facility Will obtain echocardiogram Gentle diuresis Daily intake and output (3) 2019 novel coronavirus-infected pneumonia (NCIP): Code(s): U07.1 - COVID-19; J12.82 - Pneumonia due to coronavirus disease 2018 Status: Acute Assessment and Plan: Patient with extensive infiltrates present on CT of the chest as well as chest x-ray Patient started on levofloxacin vanco and Zosyn (4) Kidney transplant recipient: Code(s): Z94.0 - Kidney transplant status Status: Acute Assessment and Plan: BUN and creatinine within normal limits Continue tacrolimus (5) S/P AKA (above knee amputation) bilateral: Code(s): Z89.611 - Acquired absence of right leg above knee; Z89.612 - Acquired absence of left leg above knee Status: Acute Assessment and Plan: Fall precautions (6) Megaloblastic anemia: Code(s): D53.1 - Other megaloblastic anemias, not elsewhere classified Status: Acute Assessment and Plan: Patient with a drop in her hemoglobin as per our records prior hemoglobin of 13 today upon presentation is 9 with an elevated MCV Will defer to Transplant Team Continue to monitor while in-house Transfuse as needed Subjective Date/time seen: 08/02/21 13:58 Chief Complaint: Shortness of breath. Narrative: This is a 60-year-old female with past medical history significant for kidney transplant, on immunosuppressive therapy, COVID-19 pneumonia, bilateral above the knee amputations, congestive heart failure. Patient was recently admitted to [facility] and then transferred out to [facility] where his transplant team is and where she usually receives her medical care at this time patient is on a waiting list to be transferred out. Patient comes in from [facility] due to shortness of breath however patient is up pulse ox was 98% according to medical records. Patient can not give much of a history but states that she has been very short of breath. Patient denies any nausea, vomiting, chills or rigors, cough, sputum production. Preliminary workup was significant for CT of the chest with diffuse infiltrates, brain atretic peptide upwards 4,000. Decision has been made to admit the patient for further evaluation management and treatment. 08/02/2021 interval history: patient states since he has arrived see urinating more and not a short of breath as when she arrived, will continue to diurese the patient, will continue present management, waiting for bed availability at [facility], Review of Systems Review of Systems: All systems reviewed & are unremarkable except as noted in HPI and below Exam Narrative: Patient is comfortable, NAD HEENT: eyes are clear and none icteric LUNGS: normal respiratory effort ABD: distended Lower extremities: no edema SKIN: nonjaundiced Neuro: grossly intact. Objective Data Vital Signs Vital Signs: Vital Signs - 24 hr 08/01/21 14:05 08/01/21 15:10 08/01/21 17:00 Temperature 99.0
--- NOTE | 2021-08-02 16:39 | WPDGICN ---
Assessment and Plan Additional Plan GI Consultation Dr. Ortiz July, This is a 60 year old female alf patient with a history of kidney transplant on immunosuppression, bilateral AKA, CV-19 pnuemonia diagnosed 07-03-2021 and CHF who presents to the ER with SOB. Patient is seen at the request of the Hospitalist service to evaluate for anemia. The patient?s primary care provider is at the alf; name unknown. As patient may be CV-19 positive I have not personally seen the patient in an attempt to preserve resources. No reports of abdominal pain, nausea or vomiting, trouble swallowing, bloating, loss of appetite or weight, early satiety, heartburn, diarrhea or constipation, rectal bleeding or melena. No reports of fever, jaundice, scleral icterus, dark urine, light stool, itching, hot or cold intolerance, chest pain, hematuria, dysuria, new cough or visual changes, easy bruising, tingling of the skin, bone pain or tremors. No history of endocarditis, rheumatic fever, dental prophylaxis, heart valve surgery, bleeding disorder or joint replacement. NKDA. Medications:see list; includes Eliquis, aspirin, fe, Pepcid. Social history: nonsmoker, nondrinker. Family history: N/C. Last colonoscopy was unknown. Physical exam: not done. Labs: 08-02-2021 Hct 31, WBC 12. TBili 1.5, A/P 140, AST 32, ALT 17. Cr 0.8 08-01-2021 Hct 31. MCV 101. INR 1.0. PTT 46. TBili 1.8, A/P 141, AST 50, ALT 20. Stool heme positive. Imaging: CT chest c/w Covid pneumonia. Assessment and plan: A. Chronic blood loss anemia with macrocytosis and heme positive stool on Eliquis and aspirin with increased INR: - No overt GI bleed; follow H+H and transfuse prn - Increased INR suggests underlying clotting issue; consider different anticoagulation agent - Acid suppression - Check anemia labs including B12, folate, retic, ferritin - Care with aspirin, NSAIDS and anticoagulants - Patient is poor candidate for endoscopy at this time due to multiple co-morbidities including pneumonia B. Abnormal LFT's: - Mild and likely related to illness - Follow for now Thank you very much for allowing me to care for your patient. No further recommendations at this time. Please call [facility] prn. Carlos Ortiz M.D. (c) [phone] GI Consult Note Consult date/time: 08/02/21 16:39 HPI: Terese Salcido is a 60 year old female [facility] Past Medical History Medical History 2019 novel coronavirus-infected pneumonia (NCIP) Surgical History Surgical History S/P AKA (above knee amputation) bilateral Family History Family History Sibling Breast cancer Social History Social History Smoking status: Never smoker Second hand tobacco smoke exposure: No Alcohol intake: never Substance use: never Spiritual care concerns: No Meds Home Medications and Allergies Home Medications Medication Instructions Recorded Confirmed Type acetaminophen-codeine 12.5 ml PO Q12H 07/03/21 08/01/21 History albuterol sulfate 2 puff INHALATION Q6H PRN 07/03/21 08/01/21 History ascorbic acid (vitamin C) 250 mg PO DAILY 07/03/21 08/01/21 History aspirin 81 mg PO DAILY 07/03/21 08/01/21 History atorvastatin 40 mg PO DAILY 07/03/21 08/01/21 History calcitriol 0.25 mcg PO DAILY 07/03/21 08/01/21 History calcium carbonate-vitamin D3 2 tablet PO BID 07/03/21 08/01/21 History ynicrwybvpe-UoDm-xri A-D-aloe 1 applic TOPICAL TID 07/03/21 08/01/21 History [Zinc Oxide Diaper Cream] ergocalciferol (vitamin D2) 1,250 mcg PO WEEKLY 07/03/21 08/01/21 History [Vitamin D2] famotidine 20 mg PO BID 07/03/21 08/01/21 History ferrous sulfate 325 mg PO BID 07/03/21 08/01/21 History gabapentin 300 mg PO TID 07/03/21 08/01/21 History insulin glargine [Lantus U-100 6 unit PIMENTEL
[2021-08-02 17:11] LABS: Glucose Point of Care 221 mg/dl (65-105)
[2021-08-02] MEDS: INSULIN ASPART (*BKC) 100 UNITS/ML SUB-Q (17:27)
--- NOTE | 2021-08-02 18:37 | PM.CNPUL ---
Assessment and Plan Assessment and plan (1) Acute respiratory failure with hypoxia: Code(s): J96.01 - Acute respiratory failure with hypoxia Status: Acute Assessment and Plan: She had a pO2 of 58, below normal; she is on O2 at 4 L/min with saturation 93-98% and she feels less short of breath. Her chest CT shows worsening ground glass opacities 08/01 compared to Jul 03 with COVID pneumonia diagnosis. She has persistent infiltrates without many other symptoms of COVID. She has not returned to baseline, and has shortness of breath intermittently at the [place]. There is limited information about treating persistent COVID infiltrates, jojo in patient with immune suppression. She is at risk for opportunistic infections. She has been accepted to [facility] when a bed is available. Continue O2, nebulizer prn, antibiotics; she uses albuterol at home as needed, 3 times in the last week. She thinks she has asthma. Never smoker. (2) 2018 novel coronavirus-infected pneumonia (NCIP): Code(s): U07.1 - COVID-19; J12.82 - Pneumonia due to coronavirus disease 2018 Status: Acute Assessment and Plan: originally diagnosed Jul 03, 2021 Rx with dexamethasone, remdesivir (3) Kidney transplant recipient: Code(s): Z94.0 - Kidney transplant status Status: Acute Assessment and Plan: She had a kidney transplant 2000 at [facility], and receives care from her transplant integrity specialist there. The lab at [facility] does not have the capability to properly monitor the tacrolimus level daily nor does the pharmacy have the medication on formulary to administer to the patient. I called [facility] without getting an answer at [phone]; this was to request tacrolimus to give her while she is here. She is on prednisone 5 mg a day and tacrolimus 1.5 mg Q 12 hours. (4) CHF (congestive heart failure): Qualifiers: Heart failure chronicity: unspecified Heart failure type: unspecified Qualified Code(s): I50.9 - Heart failure, unspecified Code(s): I50.9 - Heart failure, unspecified Status: Acute Assessment and Plan: echo is pending; (5) Atrial fibrillation: Qualifiers: Atrial fibrillation type: unspecified Qualified Code(s): I48.91 - Unspecified atrial fibrillation Code(s): I48.91 - Unspecified atrial fibrillation Status: Acute Assessment and Plan: She has new atrial fibrillation this admission, rate was 103. No alcohol use. No TSH in the system. Her heart rate is slower now. Check TSH and free T4. History of Present Illness History of Present Illness Consult date: 08/02/21 Requesting physician: Suraj Soliz MD Reason for consult: other (acute respiratory failure) Chief complaint: Pneumonia/anemia/GI bleed Narrative: NEW CONSULT: Terese Salcido is a 60 year old female with a kidney transplant 2000 on immunosuppressants who lives at [facility]. She was admitted yesterday with sudden increased shortness of breath. She did not have fever, sputum, chest congestion, loss of taste or smell, nasal congestion or a sore throat. She asked the NH to give her O2 however she says that she did not get oxygen. Her saturation was normal, and this may be why O2 was not given. She called 911 from her room to get help. She was transported to the ER by ambulance, on arrival she was saturating normally on room air. However a chest CT showed increasing patchy dense infiltrates consistent with COVID pneumonia and this was compared to her Jul [address] Her ABG showed pH was unattainable, pCO2 32.4, pO2 59.7, HCO3 not obtainable, satura
[2021-08-02] MEDS: INSULIN GLARGINE (*BKC) 100 UNITS/ML 6 UNITS SUB-Q (20:41)
[2021-08-02 20:58] LABS: Glucose Point of Care 193 mg/dl (65-105)
[2021-08-03] VITALS (7 sets, daily range): BP systolic 116; BP diastolic 42; PULSE 79–96; RESP 20; TEMP 36.1; O2SAT 95
--- NOTE | 2021-08-03 | ECHO_ITS ---
Patient Info Name: Terese Salcido Age: 60 years : 1960 Gender: Female Ht: 49 in Wt: 208 lbs BSA: 1.89 m2 HR: 91 bpm BP: 120 / 87 mmHg Heart Rhythm: Atrial Fibrillation Exam Date: 08/03/2021 8:20 AM Exam Location: [facility] Patient Status: Inpatient Admit Date: 08/02/2021 Staff Ordering Physician: Korin Cortez MD Purification Supervisor: Wilmer Santana, CARRI, RT Attending Provider: Suraj Soliz MD Referring Physician: [facility] ; Exam Type: CA echo doppler color flow Study Info Indications I50.9 - Heart failure, unspecified Complete two-dimensional, color flow and Doppler transthoracic echocardiogram is performed. Strain analysis performed. Summary 1. Complete two-dimensional, color flow and Doppler transthoracic echocardiogram is performed. 2. Left ventricular chamber dimension is mildly enlarged. 3. Left ventricular systolic function is mildly reduced, estimated at 45-50%. 4. There is moderately increased left ventricular wall thickness. 5. The left ventricular diastolic function is abnormal. 6. Global longitudinal strain is abnormal at -6 %. 7. Ejection fraction may be underestimated due to limited visualization of the endocardium and arrhythmia. 8. Left atrial chamber dimension is mildly enlarged. 9. There is mild mitral valve regurgitation. 10. There is mild tricuspid valve regurgitation. Left Ventricle Left ventricular chamber dimension is mildly enlarged. Left ventricular systolic function is mildly reduced, estimated at 45-50%. There is moderately increased left ventricular wall thickness. The left ventricular diastolic function is abnormal. Global longitudinal strain is abnormal at -6 %. Ejection fraction may be underestimated due to limited visualization of the endocardium and arrhythmia. Right Ventricle Right ventricular chamber dimension is normal. Right ventricular systolic function is normal. Left Atria Left atrial chamber dimension is mildly enlarged. Right Atria Right atrial chamber dimension is normal. Atrial Septum Intact interatrial septum visualized by color flow imaging. Aortic Valve The aortic valve is trileaflet. There is mild aortic valve sclerosis. There is no aortic valve stenosis. There is trace aortic valve regurgitation. Pulmonic Valve The pulmonic valve is normal. There is no pulmonic valve stenosis. There is trace pulmonic regurgitation. Mitral Valve The mitral valve has normal leaflets. There is no mitral valve stenosis. There is mild mitral valve regurgitation. Tricuspid Valve No pulmonary hypertension, estimated pulmonary arterial systolic pressure is 25 mmHg. The tricuspid valve leaflets are normal. There is no significant tricuspid valve stenosis. There is mild tricuspid valve regurgitation. Pericardium/Pleural The pericardium appears normal. There is no pericardial effusion. Aorta The aortic root size at the sinus of Valsalva is normal. The prox ascending aorta size is normal. Left Ventricular Outflow Tract Name Value Normal LVOT 2D LVOT Diameter 2.0 cm LVOT Doppler LVOT Peak Gradient
--- NOTE | 2021-08-03 01:34 | PC.NURSE ---
lab unable to draw 0100 vanc trough. Finishing Machine Operator notified and will try to obtain.
[2021-08-03 02:43] LABS: Basophils Percent Auto 0.5 % (0.2-1.2); Eosinophils Absolute Auto 0.2 K/mm3 (0-0.3); Eosinophils Percent Auto 2.4 % (0-4.4); Hematocrit 29.5 % (37.0-47.0); Hemoglobin 9.3 g/dL (12.0-15.0); Immature Granulocyte Percent A 1.3 % (0-0.5); Lymphocytes Absolute Auto 1.22 K/mm3 (0.9-3.2); Mean Corpuscular HGB Conc 31.5 g/dl (32-36); Mean Corpuscular Hemoglobin 31.7 pg (26-34); Mean Corpuscular Volume 100.7 fl (80-100); Monocytes Absolute Auto 1.2 K/mm3 (0.1-0.6); Monocytes Percent Auto 15.6 % (2.6-8.5); Neutrophils Absolute Auto 4.9 K/mm3 (1.3-6.7); Neutrophils Percent Auto 64.2 % (45.5-73.1); Platelet Count Result 424 k/mm3 (150-375); Red Blood Count 2.93 M/mm3 (4.2-5.4); Red Cell Distribution Width 18.9 % (11.5-14.5); White Blood Count 7.6 K/mm3 (4.5-10.0)
[2021-08-03 02:53] LABS: Alanine Aminotransferase 15 U/L (4-35); Albumin Level 2.7 g/dL (3.5-5.1); Alkaline Phosphatase 121 U/L (38-126); Anion Gap 5 mmol/L (8-16); Aspartate Amino Transferase 30 U/L (14-36); Bilirubin,Total 1.1 mg/dL (0.2-1.3); Blood Urea Nitrogen 15 mg/dL (7-17); Calcium 5.4 mg/dL (8.4-10.2); Carbon Dioxide 28 mmol/L (22-30); Chloride 100 mmol/L (98-107); Estimated Glomerular Filt Rate > 60; Glucose 99 mg/dL (65-110); Magnesium 1.2 mg/dL (1.6-2.3); Potassium 3.6 mmol/L (3.4-5.0); Sodium 133 mmol/L (137-145)
[2021-08-03 03:25] LABS: Vancomycin Trough 31.2 ug/mL (10.0-20.0)
[2021-08-03] MEDS: PIPERACILLIN/TAZOBACTAM SOD 4.5 GM in SODIUM CHLORIDE 0.9% IV 100 ML 200 ML IVPB ×2 (05:21→12:48)
[2021-08-03 06:28] LABS: Thyroid Stimulating Hormone Reflex 0.271 uIU/mL (0.465-4.68)
[2021-08-03 07:31] LABS: Free T4 Free Thyroxine Reflex 2.73 ng/dL (0.78-2.19)
[2021-08-03] MEDS: FERROUS SULFATE 324 MG TABLET PO ×2 (08:53→16:46)
[2021-08-03] MEDS: MIDODRINE HCL 10 MG TABLET PO ×3 (08:53→16:46)
[2021-08-03] MEDS: ACETAMINOPHEN/CODEINE (*CRX) 300/30 MG TABLET 1 TAB PO (08:53)
[2021-08-03] MEDS: METOPROLOL TARTRATE 25 MG TABLET PO (08:53)
[2021-08-03] MEDS: MAGNESIUM OXIDE 400 MG TABLET PO (08:54)
[2021-08-03] MEDS: FAMOTIDINE 20 MG TABLET PO ×2 (08:54→16:46)
[2021-08-03] MEDS: GABAPENTIN 300 MG CAPSULE PO ×3 (08:54→16:47)
[2021-08-03] MEDS: ASPIRIN 81 MG CHEWABLE TABLET PO (08:55)
[2021-08-03] MEDS: ASCORBIC ACID 250 MG TABLET PO (08:55)
[2021-08-03] MEDS: ACYCLOVIR 400 MG TABLET PO ×2 (08:55→16:46)
[2021-08-03] MEDS: MULTIVITAMINS THERAPEUTIC TAB (*BKC) 1 TABLET PO (08:55)
[2021-08-03] MEDS: ATORVASTATIN 40 MG TABLET PO (08:55)
[2021-08-03] MEDS: APIXABAN 5 MG TABLET PO ×2 (08:55→16:46)
[2021-08-03] MEDS: predniSONE 5 MG TABLET PO (08:55)
[2021-08-03] MEDS: calcitrioL 0.25 MCG CAPSULE PO (08:55)
[2021-08-03] MEDS: ARTIFICIAL TEARS OPHTH SOLN 15 ML BOTTLE 1 DROP EACH EYE ×2 (08:55→16:46)
[2021-08-03] MEDS: PANTOPRAZOLE SODIUM IV 40 MG VIAL IV PUSH (08:56)
[2021-08-03] MEDS: ZINC OXIDE 20% OINT 30 GM TUBE 1 APPLIC TOPICAL ×3 (08:56→16:47)
--- NOTE | 2021-08-03 12:17 | PHAR ---
HOME MED VERIFIED = [employer] RX#[id number] TACROLIMUS 0.5 MG CAPS. 4 CAPS (2 MG) ONCE A DAY. #18 CAPS
[2021-08-03] MEDS: POTASSIUM CHLORIDE 20 MEQ TABLET PO (12:48)
[2021-08-03 13:01] LABS: Vancomycin Random 23.2 ug/mL (10-20)
--- NOTE | 2021-08-03 13:03 | PM.DS ---
DS: Admitting Diagnosis Discharge Date 08/03/2021 Admitting Diagnosis shortness of breath DS: Discharge Diagnosis Discharge Diagnosis (1) Acute respiratory failure with hypoxia: Code(s): J96.01 - Acute respiratory failure with hypoxia Status: Acute Assessment and Plan: Continue supplemental oxygen Patient with extensive infiltrates on CT of the chest and chest x-ray Supportive care Continue to monitor 08/02/2021 interval history: patient states since he has arrived see urinating more and not a short of breath as when she arrived, will continue to diurese the patient, will continue present management, waiting for bed availability at [facility], (2) CHF (congestive heart failure): Qualifiers: Heart failure chronicity: unspecified Heart failure type: unspecified Qualified Code(s): I50.9 - Heart failure, unspecified Code(s): I50.9 - Heart failure, unspecified Status: Acute Assessment and Plan: Patient usually receives her care at [facility] No echocardiogram available at our facility Will obtain echocardiogram Gentle diuresis Daily intake and output (3) 2019 novel coronavirus-infected pneumonia (NCIP): Code(s): U07.1 - COVID-19; J12.82 - Pneumonia due to coronavirus disease 2019 Status: Acute Assessment and Plan: Patient with extensive infiltrates present on CT of the chest as well as chest x-ray Patient started on levofloxacin vanco and Zosyn (4) Kidney transplant recipient: Code(s): Z94.0 - Kidney transplant status Status: Acute Assessment and Plan: BUN and creatinine within normal limits Continue tacrolimus (5) S/P AKA (above knee amputation) bilateral: Code(s): Z89.611 - Acquired absence of right leg above knee; Z89.612 - Acquired absence of left leg above knee Status: Acute Assessment and Plan: Fall precautions (6) Megaloblastic anemia: Code(s): D53.1 - Other megaloblastic anemias, not elsewhere classified Status: Acute Assessment and Plan: Patient with a drop in her hemoglobin as per our records prior hemoglobin of 13 today upon presentation is 9 with an elevated MCV Will defer to Transplant Team Continue to monitor while in-house Transfuse as needed DS: Summary Hospital Course Reason for hospitalization: Chief Complaint: Shortness of breath. Narrative: This is a 60-year-old female with past medical history significant for kidney transplant, on immunosuppressive therapy, COVID-19 pneumonia, bilateral above the knee amputations, congestive heart failure. Patient was recently admitted to [facility] and then transferred out to [facility] where his transplant team is and where she usually receives her medical care at this time patient is on a waiting list to be transferred out. Patient comes in from group home due to shortness of breath however patient is up pulse ox was 98% according to medical records. Patient can not give much of a history but states that she has been very short of breath. Patient denies any nausea, vomiting, chills or rigors, cough, sputum production. Preliminary workup was significant for CT of the chest with diffuse infiltrates, brain atretic peptide upwards 4,000. Decision has been made to admit the patient for further evaluation management and treatment. Hospital Course: Continue supplemental oxygen Patient with extensive infiltrates on CT of the chest and chest x-ray Supportive care Continue to monitor 08/02/2021 interval history: patient states since he has arrived see urinating more and not a short of breath as when she arrived, will continue to diurese the patient, will continue present management, waiting for bed availability at [facility], Today patient clinically stable will discharge patient today. Status at Discharge Functional status at discharge: uses cane/walker Overall status at discharge: patient is back to baseline [facility]
[2021-08-03 15:11] LABS: Glucose Point of Care 244 mg/dl (65-105)
[2021-08-03 16:36] LABS: Glucose Point of Care 192 mg/dl (65-105)
== END 2021-08-03 17:47 | DRG 139 ==
LOC: ANHED 11:51 → ANH2MED 15:00
PROVIDERS: Internal Medicine Critical Care Medicine; Admitting Provider Family Medicine; Emergency Provider Emergency Medicine; PCP Internal Medicine; Visit Provider Family Medicine
DX: J96.01 Acute respiratory failure with hypoxia (principal); J18.9 Pneumonia, unspecified organism; U09.9 Post COVID-19 condition, unspecified; Z94.0 Kidney transplant status; D53.1 Other megaloblastic anemias, not elsewhere classified; I50.9 Heart failure, unspecified; I48.91 Unspecified atrial fibrillation; D75.89 Other specified diseases of blood and blood-forming organs; D50.0 Iron deficiency anemia secondary to blood loss (chronic); R19.5 Other fecal abnormalities; R79.89 Other specified abnormal findings of blood chemistry; Z79.01 Long term (current) use of anticoagulants; Z79.4 Long term (current) use of insulin; Z79.82 Long term (current) use of aspirin; Z79.899 Other long term (current) drug therapy; Z89.612 Acquired absence of left leg above knee; Z89.611 Acquired absence of right leg above knee
CPT/HCPCS: 36415; 36600; 71045; 71250; 80053; 80202; 82805; 82948; 83735; 83880; 84439; 84443; 84484; 85025; 85380; 85610; 85730; 87040; 93005; 93306; 94640; 96365; 96366; 96367; 96375; 99285; A9270; C9113; G0378; G0379; J0131; J1815; J1940; J1956; J2543; J3370; J7512